=== PATIENT | female | born 1965 | race Caucasian/White ===

== ENCOUNTER 2017-06-26 10:29 | Emergency (ER) | payer OTHER ==
[2017-06-26 10:53] VITALS: BP 110/66; PULSE 87; TEMP 98.4; BMI 22.4
[2017-06-26] MEDS ORDERED: ALBUTEROL SO4 2.5/IPRATROPIUM 0.5 INH SOL 3 ML VIAL.NEB. NEB ONE ×2 (11:25)
--- NOTE | 2017-06-26 11:31 | PDOC ---
History of Present Illness - General Chief Complaint: Sore Throat Stated Complaint: HEADACHES, THROAT PAIN Time Seen by Provider: 06/26/17 11:25 History Source: Patient Exam Limitations: No Limitations - History of Present Illness Initial Comments: 06/26/17 11:30 Patient here with complaints of congestion, headache, general malaise without fevers earache or sore throat pain. Patient states has a moist cough is nonproductive. Has been taking [id number] medications and Tylenol with minimal resolved. Denies knowledge of seasonal ALLERGIES but thinks may be related. Timing/Duration: reports: just prior to arrival Severity: reports: mild Associated Symptoms: reports: earache, nasal congestion, nasal drainage, sinus infection Aspirin Received prior to arrival: Yes: no aspirin today Past History - Travel Traveled outside of the country in the last 30 days: No Close contact w/someone who was outside of country & ill: No - Past Medical History Allergies/Adverse Reactions: Allergies Allergy/AdvReac Type Severity Reaction Status Date / Time No Known Allergies Allergy Verified 06/26/17 10:48 Home Medications: Ambulatory Orders Canagliflozin/Metformin HCl [Invokamet 150-500 mg Tablet] 1 each PO BIDAC Albuterol Sulfate Inhaler - [Ventolin HFA Inhaler -] 1 - 2 inh PO Q4H #1 inhaler 06/26/17 Cetirizine HCl 10 mg PO DAILY #30 tablet 06/26/17 COPD: No Diabetes: Yes - Surgical History Cholecystectomy: Yes - Suicide/Smoking/Psychosocial Hx Smoking History: Never smoked Have you smoked in the past 12 months: No Number of Cigarettes Smoked Daily: 0 Information on smoking cessation initiated: No Hx Alcohol Use: No Drug/Substance Use Hx: No Substance Use Type: None Review of Systems - Review of Systems Able to Perform ROS?: Yes Is the patient limited Hungarian proficient: Yes Constitutional: Yes: Symptoms Reported, Malaise HEENTM: Yes: See HPI, Nose Congestion, Mouth Swelling. No: Symptoms Reported Respiratory: Yes: Symptoms reported, See HPI, Cough ABD/GI: No: Symptoms Reported Musculoskeletal: Yes: Symptoms Reported All Other Systems: Reviewed and Negative *Physical Exam - Vital Signs Last Vital Signs Temp Pulse Resp BP Pulse Ox 98.4 F 87 16 110/66 98 06/26/17 10:50 06/26/17 10:50 06/26/17 10:50 06/26/17 10:50 06/26/17 10:50 - Physical Exam General Appearance: Yes: Nourished, Appropriately Dressed, Apparent Distress, Mild Distress HEENT: positive: ZIGGY, Normal ENT Inspection, TMs Normal, Pharynx Normal Neck: positive: Supple, Other (no reproduced tenderness along cervical spine or upper trapezius sternocleidomastoid muscles). negative: Tender Respiratory/Chest: positive: Lungs Clear (congested but landmarks easily visualized), Wheezing. 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, Fully Oriented, Alert, Normal Mood/ Affect, Normal Response, Motor Strength /5 Progress Note - Progress Note Progress Note: ALLERGIC rhinitis, we'll treat with albuterol, encourage daily antihistamines and follow up with ENT as needed *DC/Admit/Observation/Transfer Diagnosis at time of Disposition: Allergic rhinitis Qualifiers: Allergic rhinitis trigger: pollen Allergic rhinitis seasonality: seasonal Qualified Code(s): J30.1 - Allergic rhinitis due to pollen - Discharge Dispostion Disposition: HOME Condition at time of disposition: Stable Decision to Admit order: No - Prescriptions Prescriptions: Albuterol Sulfate Inhaler - [Ventolin HFA Inhaler -] 1 - 2 inh PO Q4H #1 inhaler Cetirizine HCl 10 mg PO DAILY #30 tablet - Referrals Referrals: Vincent Mancia MD [Staff Physician] - - Patient Instructions Printed Discharge Instructions: DI for Allergic Rhinitis Additional Instructions: Rest, drink lots of fluids: Teas, water, soups Saltwater gargles. Consider humidifier in room at night Steamy showers/seem to face break up mucus Avoid contact with allergens, exposure to pollens, close windows on a windy day Lots of handwashing and good hygiene Continue [id number] medications for symptomatic relief- may use allergic eyedrops for itching I Continue antihistamines daily until pollen season is over; Zyrtec, Claritin, Emilia during the daytime and Benadryl at nighttime as will make sleepy Tylenol or Motrin for fever and pain Followup with private physician in one to 2 days as needed Consider following up with an account executive agribusiness/director of coding for skin testing and possible allergy shots Return to emergency department for worsened symptoms, fevers, dehydration - Post Discharge Activity Forms/Work/School Notes: Back to Work
[2017-06-26] MEDS ORDERED: IBUPROFEN 400 MG TABLET (FP) PO ONE (11:48)
== END 2017-06-26 12:15 | disposition home or self-care (01) ==
LOC: JERFT 10:29
PROC: 3E0F7GC Introduction of Other Therapeutic Substance into Respiratory Tract, Via Natural or Artificial Opening (ICD-10-PCS; principal; 2017-06-26)
DX: J30.1 Allergic rhinitis due to pollen (principal)
CPT/HCPCS: 99281-25; J7620

== ENCOUNTER 2017-07-05 16:23 | Emergency (ER) | payer OTHER ==
[2017-07-05 16:33] VITALS: BP 127/68; PULSE 90; TEMP 98.2; BMI 24.2
--- NOTE | 2017-07-05 17:53 | PDOC ---
History of Present Illness - General Chief Complaint: Headache Stated Complaint: HEADACHE Time Seen by Provider: 07/05/17 16:48 History Source: Patient - History of Present Illness Timing/Duration: reports: other Severity: reports: moderate Associated Symptoms: reports: facial pain, nasal congestion, nasal drainage. denies: cough, earache, fever/chills, muscle aches, sore throat Past History - Past Medical History Allergies/Adverse Reactions: Allergies Allergy/AdvReac Type Severity Reaction Status Date / Time No Known Allergies Allergy Verified 07/05/17 16:32 Home Medications: Ambulatory Orders Canagliflozin/Metformin HCl [Invokamet 150-500 mg Tablet] 1 each PO BIDAC Albuterol Sulfate Inhaler - [Ventolin HFA Inhaler -] 1 - 2 inh PO Q4H #1 inhaler 06/26/17 Cetirizine HCl 10 mg PO DAILY #30 tablet 06/26/17 Amox-Tr/K Cl [Augmentin - 875Mg Tablet] 1 tab PO BID #14 tablet 07/05/17 Ibuprofen [Motrin -] 800 mg PO QID #28 tablet 07/05/17 Insulin Glargine,Hum.rec.anlog [Lantus] 100 unit SQ ASDIR 07/05/17 COPD: No Diabetes: Yes - Surgical History Cholecystectomy: Yes - Suicide/Smoking/Psychosocial Hx Smoking History: Never smoked Have you smoked in the past 12 months: No Number of Cigarettes Smoked Daily: 0 Hx Alcohol Use: No Drug/Substance Use Hx: No Substance Use Type: None Review of Systems - Review of Systems Constitutional: No: Chills, Fever HEENTM: Yes: Nose Congestion. No: Ear Pain, Throat Pain Respiratory: No: Cough *Physical Exam - Vital Signs Last Vital Signs Temp Pulse Resp BP Pulse Ox 98.2 F 90 18 127/68 99 07/05/17 16:30 07/05/17 16:30 07/05/17 16:30 07/05/17 16:30 07/05/17 16:30 - Physical Exam General Appearance: Yes: Appropriately Dressed. No: Apparent Distress HEENT: positive: Normal ENT Inspection, Normal Voice, TMs Normal, Pharynx Normal , Sinus Tenderness (to frontal sinuses b/l). negative: Scleral Icterus (R), Scleral Icterus (L), Muffled/Hoarse voice, Tonsillar Exudate, Tonsillar Erythema Neck: positive: Supple Respiratory/Chest: negative: Respiratory Distress Integumentary: positive: Dry, Warm Neurologic: positive: Fully Oriented, Alert, Normal Mood/Affect Medical Decision Making - Medical Decision Making 07/05/17 17:52 52-year-old female, history of insulin-dependent diabetes, here with facial pain with nasal congestion, green rhinorrhea and headache x several weeks. No fever, chills, dizziness, blurred vision or neck pain. Seen in ER and diagnosed with allergies 9 months ago. States zyrtec and albuterol pump not alleviating symptoms. Took motrin prior to arrival with some improvement in headache. Patient appears uncomfortable but stable with tenderness to frontal sinuses bilaterally. Suspect sinusitis and given duration of symptoms, will prescribe antibiotics at this point. Patient instructed to continue Motrin as needed for pain and take soda Sudafed as needed for congestion. To follow-up with her PMD next week 07/05/17 17:59 *DC/Admit/Observation/Transfer Diagnosis at time of Disposition: Sinusitis Qualifiers: Sinusitis location: frontal Chronicity: acute Recurrence: not specified as recurrent Qualified Code(s): J01.10 - Acute frontal sinusitis, unspecified - Discharge Dispostion Disposition: HOME Condition at time of disposition: Good - Prescriptions Prescriptions: Amox-Tr/K Cl [Augmentin - 875Mg Tablet] 1 tab PO BID #14 tablet Ibuprofen [Motrin -] 800 mg PO QID #28 tablet - Referrals - Patient Instructions Printed Discharge Instructions: Sinusitis Additional Instructions: Es posible que tenga vanessa afeccin llamada sinusitis. El tratamiento es antibi ticos y analgsicos. Tambin puede will Sudafed sin receta para la congestin segn sea necesario. Tambin puede utilizar el aerosol nasal Afrin sin receta, olivia no lo use por ms de 3 singh, ya que el uso por ms de 3 singh puede empeorar la congestin. Por favor byron un seguimiento con pompa mdico la prxima semana Print Language: MALAYSIAN - Post Discharge Activity
[2017-07-05] MEDS ORDERED: AMOX TR/POT CLAV 875MG/125MG TABLETS (FP) PO ONE (17:59)
[2017-07-05] MEDS ORDERED: AMOX TR/POT CLAV 875MG/125MG TABLETS (FP) ONE (18:01)
== END 2017-07-05 18:02 | disposition home or self-care (01) ==
LOC: JERFT 16:23
DX: J01.10 Acute frontal sinusitis, unspecified (principal); E10.9 Type 1 diabetes mellitus without complications; Z79.4 Long term (current) use of insulin
CPT/HCPCS: 99281-25